=== PATIENT | male | born 1990 | race Caucasian/White ===

== ENCOUNTER 2018-01-28 19:21 | Emergency (ER) | payer SELFPAY | END 2018-01-29 00:32 | disposition home or self-care (01) | LOC: FTE 01-29 00:32 | DX: S00.83XA Contusion of other part of head, initial encounter (principal); F17.210 Nicotine dependence, cigarettes, uncomplicated; Y04.2XXA Assault by strike against or bumped into by another person, initial encounter; Y92.89 Other specified places as the place of occurrence of the external cause | CPT/HCPCS: 70486; 99284-25 ==